=== PATIENT | female | born 1945 | race Caucasian/White ===

== ENCOUNTER → 2018-08-27 12:38 | Outpatient (CLI) | payer MEDICARE, SELFPAY ==
--- NOTE | 2018-08-27 12:41 | BI_ITS ---
MAMMOGRAPHY - BILATERAL SCREENING REASON FOR EXAM: Female, 73 years old. Routine annual screening examination. PERTINENT HISTORY: Non-contributory. TECHNIQUE: Digital bilateral breast sasha (3D mammographic acquisition) in the CC and MLO projections. 2-D mediolateral oblique (MLO) and craniocaudad (CC) views of both breasts were obtained. CAD: Full Field Digital Mammography with Computer Added Detection was performed. COMPARISON: Comparison is made with prior study dated August 26, 2017 and August 19, 2016. FINDINGS: Breast Composition: The breasts are heterogeneously dense, which may obscure small masses. There are no dominant masses or suspicious calcifications. No other significant abnormalities are identified. There has been no significant change since the prior study. BI/SCREENING MAMM (CAD), BILAT IMPRESSION: Stable bilateral screening mammogram. Yearly follow-up mammogram recommended. (A) ASSESSMENT CATEGORY: BIRADS Category 1: Negative. A letter regarding these results will be sent to the patient by the facility within 30 days. Approximately 10% of breast cancers are not detected by mammography. A normal mammogram should not delay biopsy of a clinically suspicious abnormality. [id number] Electronically Signed: Darryn Ibrahim MD at 13:44 EDT Tel [phone], Service support ,
== END ==
PROVIDERS: Family Provider Internal Medicine; PCP Internal Medicine; Referring Provider Obstetrics & Gynecology; Visit Provider Obstetrics & Gynecology
DX: Z12.31 Encounter for screening mammogram for malignant neoplasm of breast (principal)
CPT/HCPCS: 77063; 77067

== ENCOUNTER → 2019-09-07 | Outpatient (CLI) | payer MEDICARE, SELFPAY ==
--- NOTE | 2019-09-07 09:02 | BI_ITS ---
MAMMOGRAPHY - BILATERAL SCREENING REASON FOR EXAM: Female, 74 years old. Routine annual screening examination. PERTINENT HISTORY: Non-contributory. TECHNIQUE: Digital bilateral breast donna (3D mammographic acquisition) in the CC and MLO projections. 2-D mediolateral oblique (MLO) and craniocaudad (CC) views of both breasts were obtained. CAD: Full Field Digital Mammography with Computer Added Detection was performed. COMPARISON: Comparison is made with prior examination dated August 27, 2018 and August 26, 2017. FINDINGS: Breast Composition: There are scattered areas of fibroglandular density. There are no dominant masses or suspicious calcifications. No other significant abnormalities are identified. There has been no significant change since the prior study. BI/SCREEN MAMM (CAD) W/DONNA BILAT IMPRESSION: Stable bilateral screening mammogram. Yearly follow-up mammogram recommended. (A) ASSESSMENT CATEGORY: BIRADS Category 1: Negative. A letter regarding these results will be sent to the patient by the facility within 30 days. Approximately 10% of breast cancers are not detected by mammography. A normal mammogram should not delay biopsy of a clinically suspicious abnormality. [id number] Electronically Signed: Darryn Ibrahim, at 11:01 EST , Service support ,
--- NOTE | 2019-09-07 09:17 | BD_ITS ---
STUDY: DUAL ENERGY X-RAY ABSORPTIOMETRY / DXA REASON FOR EXAM: Female, 74 years old. The patient is postmenopausal. History of thyroid cancer. TECHNIQUE: Bone Mineral Density (BMD) measurements of lumbar spine and bilateral hips were obtained. COMPARISON: Comparison is made with prior examination dated September 04, 2016. FINDINGS: Lumbar Spine (L1-L4): g/cm2 (0.900) / T-score (-2.5) / Z-score (-0.7) Findings are suggestive of osteoporosis with a high fracture risk. Left Femur Total: g/cm2 (0.800) / T-score (-1.7) / Z-score (0.2) Left Femoral Neck: g/cm2 (0.783) / T-score (-1.8) / Z-score (0.1) Right Femur Total: g/cm2 (0.774) / T-score (-1.9) / Z-score (0.0) Right Femoral Neck: g/cm2 (0.753) / T-score (-2.1) / Z-score (-0.1) The T-Scores on the most recent prior examination were: Lumbar Spine (L1-L4): There has been worsening of bone density since the previous examination. Left Femur Total: which represents a worsening of 5.7%. Right Femur Total: which represents an improvement of 1%. BD/Dexa Bone Density Study IMPRESSION: The patient is considered osteoporotic as outlined below according to World Valerio Organization (WHO) criteria with a high fracture risk. There has been worsening of bone density since the previous examination. Reference Information: The T-score is the number of standard deviations above or below the standard which is normal for young adults at their peak bone mineral density. The World Health Organization (WHO) interprets the T-scores as follows: Above -1 Normal bone density Between -1 and -2.5 Osteopenia Equal to / or below -2.5 Osteoporosis As a practical clinical guideline, osteopenia may be graded as follows: Mild -1 through -1.5 Moderate -1.6 through -2.0 Severe -2.1 through -2.4 The Z-score is the number of standard deviations above or below age-matched controls. A Z-score of less than -1.5 would be considered abnormal. References: 1. NIH Osteoporosis and Related Bone Diseases http://www.osteo.org 2. International Society for Clinical Densitometry http://www.iscd.org 3. National Osteoporosis Foundation http://www.nof.org Electronically Signed: Darryn Ibrahim, at 10:17 EST , Service support ,
== END | disposition home or self-care (01) ==
LOC: OPBD 08:59
PROVIDERS: Family Provider Internal Medicine; PCP Internal Medicine; Referring Provider Obstetrics & Gynecology; Visit Provider Obstetrics & Gynecology
DX: M85.89 Other specified disorders of bone density and structure, multiple sites (principal); Z12.31 Encounter for screening mammogram for malignant neoplasm of breast
CPT/HCPCS: 77063; 77067; 77080

== ENCOUNTER → 2019-09-20 09:05 | Outpatient (CLI) | payer MEDICARE, SELFPAY ==
[2019-09-20 10:45] LABS: Calcium,Total 9.4 mg/dL (8.5-10.1)
[2019-09-20 10:56] LABS: Vitamin D,25 Hydroxy 62.9 ng/mL (29.95-100.01)
== END ==
PROVIDERS: Visit Provider Obstetrics & Gynecology
DX: M81.0 Age-related osteoporosis without current pathological fracture (principal)
CPT/HCPCS: 36415; 82306; 82310

== ENCOUNTER 2019-11-27 07:06 | Emergency (ER) | payer MEDICARE, SELFPAY ==
[2019-11-27 07:09] VITALS: BP 154/77; PULSE 81; RESP 17; TEMP 37.1; O2SAT 98; BMI 23.6
--- NOTE | 2019-11-27 07:46 | ED.DCSUM_ITS ---
History of Present Illness Chief Complaint: Wound Check Detail of Chief Complaint: redness around surgical incision Informant: Patient, Significant Other Onset: Days - 3 Context: Gradual Onset - post-surgery Timing: Continuous Quality of Pain: - - sore Location: left knee Current Severity: Mild Maximum Severity: Mild Associated Symptoms: Negative for: Parasthesia, Weakness, Loss of Funtion Narrative: Patient had robotic knee surgery 5 days ago. Postoperatively she states she has been doing very well, walking and bending her knee without too much difficulty. She noticed redness spread outside of her postoperative dressing 3 days ago. It was really not bothering her more. Yesterday she was at physical therapy, they remove the postoperative dressing and had some concern about the redness that was emanating from the wound. They alber a line around it and told her to come to the emergency department if the redness went outside the line. This morning in her medial thigh and her lateral thigh, the redness has spread a little more proximally. It has not spread distally. She has no increased pain. There is no discharge from the wound. She denies any fevers or systemic symptoms, no shortness of breath or chest pain. There is no increased swelling distally. She is not anticoagulated. - Past Medical History (1) Osteoarthritis Status: Chronic Past Medical History - Allergies and Home Meds Allergies/Adverse Reactions: Allergies No Known Allergies Allergy (Verified 11/27/19 07:09) Primary Care Physician: Elise Martinez MD [Primary Care Provider] - Surgical History: total knee arthroplasty Lives: Spouse/ Significant Other Smoking Status: Never smoker Review of Systems General: Denies: Chills, Fever, Sweats Eyes: Denies: Visual changes - bilaterally, Diplopia ENT: Denies: Rhinorrhea, Sore throat Cardiovascular: Denies: Chest pain, Palpitations Respiratory: Denies: Dyspnea, Cough, Dyspnea on exertion Gastrointestinal: Denies: Abdominal pain, Nausea, Vomiting, Diarrhea, Melena, Hematochezia Genitourinary: Denies: Dysuria, Hematuria, Frequency Musculoskeletal: Reports: Swelling - Postoperative left lower extremity, Extremity Pain - Per patient, relatively mild postoperative pain left knee/extremity. Denies: Back pain Skin: Reports: Rash, Wounds - Left knee surgical Neurological: Denies: Headache, Weakness, Numbness Physical Exam Vital Signs/Narrative: Vital Signs Temp Pulse Resp BP Pulse Ox 11/27/19 07:09 98.7 F 81 17 154/77 H 98 Inital Vital Signs reviewed: Yes - Extremity Exam Left Femur: - - No palpable cords Left Knee: - - Mild diffuse swelling around the left knee, some of which progresses distally along with bruising. Negative for: Limited ROM Left Tib Fib: Edema - Mild, - - No palpable cords or calf tenderness General: Well nourished, Well developed Respiratory: No distress Skin: Rash - Erythema surrounding left anterior knee surgical incision, darrius are intact, it is somewhat patchy in distribution, it progresses up the left thigh medially well beyond the line that is drawn, and laterally only about 1 cm beyond where the line is drawn. Distally it does not spread beyond the line, nor medially or laterally at the knee proper. She has full range of motion. The erythema is not tender. There is no discharge from the surgical wound which is intact. There is no streaky lymphangitis. Neurological: Alert, Oriented x3, Cranial nerves II-XII grossly intact, Normal Strength, Normal Sensation Psychological: Normal affect, Normal Mood Diagnostic/Tx/Re-eval Laboratory Tests 11/27/19 Range/Units 07:55 WBC 6.5 (4.4-11.0) K/mm3 RBC 3.95 L (4.2-5.4) M/mm3 Hgb 12.1 (12.0-15.0) g/dL Hct 36.3 L (37-47) % MCV 91.9 (81-99) fL MCH 30.6 (27.0-32.0) pg MCHC 33.3 (32-36) g/dL RDW Std Deviation 42.5 (35.1-43.9) fl RDW Coeff of Lucas 12.5 (11.6-14.6) % Plt Count 261 (150-450) K/mm3 MPV 10.6 (6.2-12.0) fl Immature Gran % (Auto) 0.300 (0.0-0.9) % Neut % (Auto) 75.8 H (47-70) % Lymph % (Auto) 12.5 L (19-41) % Randall % (Auto) 10.2 H (0-10) % Eos % (Auto) 0.9 (0-5) % Baso % (Auto) 0.3 (0-1) % Absolute Neuts (auto) 4.9 (2.0-7.7) X10^3/uL Absolute Lymphs (auto) 0.81 L (0.83-4.51) X10^3/uL Nucleated RBC % 0 (0-5) % - Medical Decision Making White blood count was obtained, it is very normal and there is no leftward shift. See above. I discussed with Dr. Romero who was on-call for the weekend for Dr. Chandra. He states based on the description along with no tenderness, and redness that is spread outside the lines, he would recommend not placing the patient on antibiotics at this time, as this redness unlikely represents acute infection, and following up with Dr. Chandra, icing aggressively and taking ibuprofen 600 mg 3 times daily until that. Discussed with the patient she is comfortable with this plan. ED Disposition - Plan for ED Patient: Disposition: Home or Assisted Living Diagnosis: Encounter for postoperative wound check Instructions: POST OP WOUND CHECK, Pain Referrals: Gio Chandra MD [STAFF PHYSICIAN] - 11/29/19 (call friday AM for appt) Additional Instructions: When you are resting, ice your knee aggressively. Take ibuprofen 600 mg 2-[address] Chandra in follow-up on Friday. If you develop a fever before then, return to the ER.
[2019-11-27 08:07] LABS: Absolute Lymphocyte Count 0.81 X10^3/uL (0.83-4.51); Absolute Neutrophil Count 4.9 X10^3/uL (2.0-7.7); Basophil# 0.02 X10^3/uL; Basophil% 0.3 % (0-1); Eosinophil# 0.06 X10^3/uL; Eosinophils% 0.9 % (0-5); Hematocrit 36.3 % (37-47); Hemoglobin 12.1 g/dL (12.0-15.0); Lymphocyte # 0.81 X10^3/ul (4.0); Lymphocyte % 12.5 % (19-41); Mean Corp Hgb Conc 33.3 g/dL (32-36); Mean Corpuscular Hgb 30.6 pg (27.0-32.0); Mean Corpuscular Volume 91.9 fL (81-99); Mean Platelet Vol. 10.6 fl (6.2-12.0); Monocyte# 0.66 X10^3/uL; Monocyte% 10.2 % (0-10); NRBC Flagged by Analyzer 0 % (0-5); Neutrophil # 4.89 X10^3/uL (2.7-7.7); Neutrophil % 75.8 % (47-70); Platelet Count 261 K/mm3 (150-450); RBC Distribution Width CV 12.5 % (11.6-14.6); RBC Distribution Width SD 42.5 fl (35.1-43.9); Red Blood Count 3.95 M/mm3 (4.2-5.4); White Blood Count 6.5 K/mm3 (4.4-11.0)
== END 2019-11-27 08:44 | disposition home or self-care (01) ==
PROVIDERS: Emergency Provider Emergency Medicine; PCP Internal Medicine; Referring Provider Internal Medicine
DX: L53.9 Erythematous condition, unspecified (principal); Z98.890 Other specified postprocedural states; M19.90 Unspecified osteoarthritis, unspecified site; Z96.652 Presence of left artificial knee joint
CPT/HCPCS: 85025; 99283; A4216

== ENCOUNTER → 2020-04-18 | Outpatient (CLI) | payer MEDICARE, SELFPAY ==
--- NOTE | 2020-04-18 09:43 | MRI_ITS ---
STUDY: MRI LUMBAR SPINE WITHOUT CONTRAST REASON FOR EXAM: Female, 75 years old. R thigh pain intermittently x 3 yrs, no relief from PT,lbp TECHNIQUE: Standardized fat and water weighted pulse sequences were obtained in the sagittal and axial planes. COMPARISON: None FINDINGS: T12-L1: Normal endplates. Normal disc height, hydration and morphology. Normal bilateral facet joints. Normal central canal and bilateral lateral recesses. Normal bilateral intervertebral neural foramina. Normal lumbar lordosis. There is no substantial scoliosis. Normal conus medullaris that terminates at the T12/L1. L1-2: Normal endplates. Normal disc height, hydration and morphology. Normal bilateral facet joints. Normal central canal and bilateral lateral recesses. Normal bilateral intervertebral neural foramina. L2-3: Normal endplates. Normal disc height, hydration and morphology. Normal bilateral facet joints. Normal central canal and bilateral lateral recesses. Normal bilateral intervertebral neural foramina. L3-4: Moderate bilateral facet hypertrophy and severe ligament flavum hypertrophy. Mild broad disc protrusion produces mild spinal stenosis with mild bilateral lateral recess stenosis and mild bilateral neural foraminal stenosis. L4-5: Severe bilateral facet hypertrophy and mild ligament flavum hypertrophy. 5 mm of anterolisthesis of L4 on L5 with a mild broad disc protrusion produces moderate spinal stenosis and moderate bilateral neural foraminal stenosis with abutment of the L4 nerve roots bilaterally. L5-S1: Ankylosis of the disc space with mild spinal stenosis and mild bilateral neural foraminal stenosis. Normal visualized sacral ala. Normal visualized paraspinous soft tissue structures. MRI/Spine Lumbar (Routine) IMPRESSION: Multilevel degenerative changes, as described above. Electronically Signed: Tahir Sargent MD at 15:02 EDT Tel , Service support ,
== END | disposition home or self-care (01) ==
PROVIDERS: PCP Internal Medicine; Referring Provider Physician Assistant Surgical; Visit Provider Physician Assistant Surgical
DX: M54.16 Radiculopathy, lumbar region (principal); M43.16 Spondylolisthesis, lumbar region
CPT/HCPCS: 72148

== ENCOUNTER → 2020-06-08 | Outpatient (CLI) | payer MEDICARE, SELFPAY ==
[2020-06-08 15:30] VITALS: BMI 23.6
[2020-06-08 17:51] LABS: ALB/GLOB Ratio 1.1 RATIO (0.9-2.4); AST(SGOT) 11 U/L (15-37); Alanine Aminotransfer ALT/SGPT 15 U/L (13-56); Albumin, Serum 3.5 g/dL (3.2-5.0); Alkaline Phosphatase 69 U/L (45-117); Anion Gap 7 (5-15); BUN 31 mg/dL (7-18); BUN/Creat Ratio 40.9 RATIO (10-20); Calcium,Total 8.8 mg/dL (8.5-10.1); Chloride 103 mmol/L (98-107); Creatinine, Serum 0.76 mg/dL (0.55-1.02); EST Glomerular Filtration Rate 79 mL/min (>60); Est Glom Filt Rate - Afr Amer 95 mL/min (>60); Globulin 3.1 g/dL (2.2-4.2); Glucose 92 mg/dL (74-106); Potassium 3.9 mmol/L (3.5-5.1); Protein, Total 6.6 g/dL (6.4-8.2); Sodium Level 138 mmol/L (136-145); T4 Free Direct 1.44 ng/dL (0.76-1.46); Thyroid Stim Hormone (TSH) 0.52 uIU/mL (0.358-3.74)
[2020-06-08 19:04] LABS: Vitamin D,25 Hydroxy 70.6 ng/mL
[2020-06-12 15:27] LABS: Anti-Thyroglobulin AB < 1.0 IU/mL (0.0-0.9); Thyroglobulin, Serum Qt. < 0.1 ng/mL (1.5-38.5)
== END | disposition home or self-care (01) ==
LOC: BIMLAB 16:17
PROVIDERS: PCP Internal Medicine; Referring Provider Internal Medicine Endocrinology, Diabetes & Metabolism; Visit Provider Internal Medicine Endocrinology, Diabetes & Metabolism
DX: C73 Malignant neoplasm of thyroid gland (principal); E55.9 Vitamin D deficiency, unspecified; E89.0 Postprocedural hypothyroidism; M81.0 Age-related osteoporosis without current pathological fracture
CPT/HCPCS: 36415; 80053; 82306; 84432; 84439; 84443; 86800

== ENCOUNTER → 2020-06-27 | Outpatient (CLI) | payer MEDICARE, SELFPAY ==
[2020-06-08 15:30] VITALS: BMI 23.6
[2020-06-27 10:21] LABS: Absolute Lymphocyte Count 1.41 X10^3/uL (0.83-4.51); Absolute Neutrophil Count 2.2 X10^3/uL (2.0-7.7); Basophil# 0.02 X10^3/uL; Basophil% 0.5 % (0-1); Eosinophils% 2.4 % (0-5); Hematocrit 40.5 % (37-47); Hemoglobin 13.9 g/dL (12.0-15.0); Lymphocyte # 1.41 X10^3/ul (4.0); Lymphocyte % 33.3 % (19-41); Mean Corp Hgb Conc 34.3 g/dL (32-36); Mean Corpuscular Hgb 32.4 pg (27.0-32.0); Mean Corpuscular Volume 94.4 fL (81-99); Mean Platelet Vol. 11.3 fl (6.2-12.0); Monocyte# 0.47 X10^3/uL; Monocyte% 11.1 % (0-10); NRBC Flagged by Analyzer 0 % (0-5); Neutrophil # 2.22 X10^3/uL (2.7-7.7); Neutrophil % 52.5 % (47-70); Platelet Count 285 K/mm3 (150-450); RBC Distribution Width CV 13.2 % (11.6-14.6); RBC Distribution Width SD 44.7 fl (35.1-43.9); Red Blood Count 4.29 M/mm3 (4.2-5.4); White Blood Count 4.2 K/mm3 (4.4-11.0)
[2020-06-27 10:23] LABS: Erythrocyte Sedimentation Rate < 1 mm/hr (0-30)
[2020-06-27 10:49] LABS: CRP < 2.90 mg/L (0.0-3.0)
== END | disposition home or self-care (01) ==
LOC: MTLAB 07:28
PROVIDERS: PCP Internal Medicine; Referring Provider Physician Assistant Surgical; Visit Provider Physician Assistant Surgical
DX: Z96.652 Presence of left artificial knee joint (principal)
CPT/HCPCS: 36415; 85025; 85652; 86140

== ENCOUNTER → 2020-07-07 | Outpatient (CLI) | payer MEDICARE, SELFPAY ==
[2020-06-08 15:30] VITALS: BMI 23.6
[2020-07-07] MEDS: DENOSUMAB 60 MG/ML SQ (12:53)
[2020-07-07 12:54] VITALS: BP 134/70; PULSE 71; RESP 16; TEMP 36.6; O2SAT 100; BMI 23.4
[2020-07-07 13:01] VITALS: BP 134/70; PULSE 71; RESP 16; TEMP 36.6; O2SAT 100
== END | disposition home or self-care (01) ==
LOC: MEDOUTP 12:45
PROVIDERS: PCP Internal Medicine; Referring Provider Internal Medicine Endocrinology, Diabetes & Metabolism; Visit Provider Internal Medicine Endocrinology, Diabetes & Metabolism
DX: M81.0 Age-related osteoporosis without current pathological fracture (principal)
CPT/HCPCS: 96372; J0897

== ENCOUNTER → 2020-09-11 10:06 | Outpatient (CLI) | payer MEDICARE, SELFPAY ==
[2020-06-08 15:30] VITALS: BMI 23.6
[2020-07-07 12:54] VITALS: BMI 23.4
--- NOTE | 2020-09-11 10:09 | BI_ITS ---
MAMMOGRAPHY - BILATERAL SCREENING REASON FOR EXAM: Female, 75 years old. Routine annual screening examination. PERTINENT HISTORY: Non-contributory. TECHNIQUE: Digital bilateral breast donna (3D mammographic acquisition) in the CC and MLO projections. 2-D mediolateral oblique (MLO) and craniocaudad (CC) views of both breasts were obtained. CAD: Full Field Digital Mammography with Computer Added Detection was performed. COMPARISON: Comparison is made with prior study dated 09/07/2019 and 08/27/2018. FINDINGS: Breast Composition: The breasts are heterogeneously dense, which may obscure small masses. There are no dominant masses or suspicious calcifications. No other significant abnormalities are identified. There has been no significant change since the prior study. BI/SCREEN MAMM (CAD) W/DONNA BILAT IMPRESSION: Stable bilateral screening mammogram. Yearly follow-up mammogram recommended. (A) ASSESSMENT CATEGORY: BIRADS Category 1: Negative. A letter regarding these results will be sent to the patient by the facility within 30 days. Approximately 10% of breast cancers are not detected by mammography. A normal mammogram should not delay biopsy of a clinically suspicious abnormality. [id number] Electronically Signed: Darryn Ibrahim, at 11:07 EST , Service support ,
== END ==
PROVIDERS: PCP Internal Medicine; Referring Provider Obstetrics & Gynecology; Visit Provider Obstetrics & Gynecology
DX: Z12.31 Encounter for screening mammogram for malignant neoplasm of breast (principal)
CPT/HCPCS: 77063; 77067

== ENCOUNTER → 2020-11-15 07:36 | Outpatient (CLI) | payer MEDICARE, SELFPAY ==
[2020-07-07 12:54] VITALS: BMI 23.4
--- NOTE | 2020-11-15 07:43 | CT_ITS ---
STUDY: CT BRAIN WITH AND WITHOUT CONTRAST REASON FOR EXAM: Female, 75 years old. HEADACHES AND PRESSURE X 1 TO 2 MONTHS RADIATION DOSAGE (If Supplied By Facility): CTDIvol = ( 44.99 ) mGy, DLP = ( 1547.23 ) mGycm TECHNIQUE: Transaxial CT imaging of the brain was performed pre and post contrast administration. The examination was performed with intravenous administration of IV 50mL Isovue-300. Individualized dose optimization techniques were used for this CT. COMPARISON: None. FINDINGS: Normal soft tissue structures. Normal calvarium. There is mild cerebral atrophy with widening of the extra-axial spaces and ventricular dilatation. Normal white matter tracts of the cerebral hemispheres. Normal basal ganglia and thalami. Normal brainstem. Normal cerebellum. There is no intracranial hemorrhage. There are no findings of an acute ischemic infarction. Normal visualized paranasal sinuses. CT/Brain/Head W/WO Contrast IMPRESSION: Chronic involutional changes of the brain. Electronically Signed: Darryn Ibrahim MD at 9:09 EST , Service support ,
[2020-11-15 08:01] LABS: CREATININE FINGERSTICK 1.2 mg/dL (0.55-1.02)
== END ==
PROVIDERS: PCP Internal Medicine; Referring Provider Otolaryngology; Visit Provider Otolaryngology
DX: R51.9 Headache, unspecified (principal); S09.90XA Unspecified injury of head, initial encounter
CPT/HCPCS: 70470; Q9967

== ENCOUNTER → 2021-01-12 10:46 | Outpatient (CLI) | payer MEDICARE, SELFPAY ==
[2020-06-08 15:30] VITALS: BMI 23.6
[2020-07-07 12:54] VITALS: BMI 23.4
[2021-01-12 10:52] VITALS: BP 129/80; PULSE 72; RESP 16; TEMP 36.8; O2SAT 100; BMI 22.8
[2021-01-12] MEDS: DENOSUMAB 60 MG/ML SC (10:57)
== END ==
PROVIDERS: PCP Internal Medicine; Referring Provider Internal Medicine Endocrinology, Diabetes & Metabolism; Visit Provider Internal Medicine Endocrinology, Diabetes & Metabolism
DX: M81.0 Age-related osteoporosis without current pathological fracture (principal)
CPT/HCPCS: 96372; J0897

== ENCOUNTER → 2021-07-13 12:49 | Outpatient (CLI) | payer MEDICARE, SELFPAY ==
[2020-07-07 12:54] VITALS: BMI 23.4
[2021-07-13 12:55] VITALS: BP 148/79; PULSE 95; RESP 16; TEMP 36.4; O2SAT 99
[2021-07-13] MEDS: DENOSUMAB 60 MG/ML SC (12:58)
== END ==
PROVIDERS: PCP Internal Medicine; Referring Provider Internal Medicine Endocrinology, Diabetes & Metabolism; Visit Provider Internal Medicine Endocrinology, Diabetes & Metabolism
DX: M81.0 Age-related osteoporosis without current pathological fracture (principal)
CPT/HCPCS: 96372; J0897

== ENCOUNTER → 2021-09-14 09:51 | Outpatient (CLI) | payer MEDICARE, SELFPAY ==
--- NOTE | 2021-09-14 09:53 | BI_ITS ---
MAMMOGRAPHY - BILATERAL SCREENING REASON FOR EXAM: Female, 76 years old. Routine annual screening examination. PERTINENT HISTORY: Non-contributory. TECHNIQUE: Digital bilateral breast donna (3D mammographic acquisition) in the CC and MLO projections. 2-D mediolateral oblique (MLO) and craniocaudad (CC) views of both breasts were obtained. CAD: Full Field Digital Mammography with Computer Added Detection was performed. COMPARISON: Comparison is made with prior study dated 09/11/2020 and 09/07/2019. FINDINGS: Breast Composition: The breasts are heterogeneously dense, which may obscure small masses. There are no dominant masses or suspicious calcifications. Stable small benign-appearing bilateral axillary lymph nodes. No other significant abnormalities are identified. There has been no significant change since the prior study. BI/SCRN MAMM (CAD)W/DONNA BILAT IMPRESSION: Stable bilateral screening mammogram. Yearly follow-up mammogram recommended. (A) ASSESSMENT CATEGORY: BIRADS Category 2: Benign. A letter regarding these results will be sent to the patient by the facility within 30 days. Approximately 10% of breast cancers are not detected by mammography. A normal mammogram should not delay biopsy of a clinically suspicious abnormality. [id number] Electronically Signed: Darryn Ibrahim MD at 11:06 EST , Service support ,
== END ==
PROVIDERS: PCP Internal Medicine; Referring Provider Obstetrics & Gynecology; Visit Provider Obstetrics & Gynecology
DX: Z12.31 Encounter for screening mammogram for malignant neoplasm of breast (principal)
CPT/HCPCS: 77063; 77067

== ENCOUNTER 2022-01-18 12:46 | Outpatient (CLI) | payer MEDICARE, SELFPAY ==
[2022-01-18 12:45] VITALS: BP 145/81; PULSE 88; RESP 16; TEMP 36.6; O2SAT 100
[2022-01-18] MEDS: DENOSUMAB 60 MG/ML SC (12:58)
== END 2022-01-18 23:59 | disposition home or self-care (01) ==
LOC: MEDOUTP 12:47
PROVIDERS: PCP Internal Medicine; Referring Provider Internal Medicine Endocrinology, Diabetes & Metabolism; Visit Provider Internal Medicine Endocrinology, Diabetes & Metabolism
DX: M81.0 Age-related osteoporosis without current pathological fracture (principal)
CPT/HCPCS: 96372; J0897

== ENCOUNTER → 2022-06-13 | Outpatient (CLI) | payer MEDICARE, SELFPAY ==
--- NOTE | 2022-06-13 12:58 | BD_ITS ---
STUDY: DUAL ENERGY X-RAY ABSORPTIOMETRY / DXA REASON FOR EXAM: Female, 77 years old. Assess treatment TECHNIQUE: Bone Mineral Density (BMD) measurements of lumbar spine and bilateral hips were obtained. COMPARISON: Comparison is made with prior study dated 09/07/2019. FINDINGS: Lumbar Spine (L1-L4): g/cm2 (0.809) / T-score (-1.9) / Z-score (0.7) Findings are suggestive of osteopenia with a moderate fracture risk. Left Femur Total: g/cm2 (0.765) / T-score (-1.4) / Z-score (0.6) Left Femoral Neck: g/cm2 (0.658) / T-score (-1.7) / Z-score (0.5) Right Femur Total: g/cm2 (0.746) / T-score (-1.6) / Z-score (0.4) Right Femoral Neck: g/cm2 (0.609) / T-score (-2.2) / Z-score (0.1) The T-Scores on the most recent prior examination were: Lumbar Spine (L1-L4): There has been improvement of bone density since the previous examination. Left Femur Total: which represents an improvement of 3.5%. Right Femur Total: which represents an improvement of 4.4%. BD/Dexa Bone Density Study IMPRESSION: The patient is considered osteopenic as outlined below according to World Valerio Organization (WHO) criteria with a moderate fracture risk. There has been improvement of bone density since the previous examination. Reference Information: The T-score is the number of standard deviations above or below the standard which is normal for young adults at their peak bone mineral density. The World Health Organization (WHO) interprets the T-scores as follows: Above -1 Normal bone density Between -1 and -2.5 Osteopenia Equal to / or below -2.5 Osteoporosis As a practical clinical guideline, osteopenia may be graded as follows: Mild -1 through -1.5 Moderate -1.6 through -2.0 Severe -2.1 through -2.4 The Z-score is the number of standard deviations above or below age-matched controls. A Z-score of less than -1.5 would be considered abnormal. References: 1. NIH Osteoporosis and Related Bone Diseases www osteo.org 2. International Society for Clinical Densitometry www iscd.org 3. National Osteoporosis Foundation www nof.org Electronically Signed: Darryn Ibrahim MD at 15:27 EDT ,
== END | disposition home or self-care (01) ==
PROVIDERS: PCP Internal Medicine; Referring Provider Internal Medicine Endocrinology, Diabetes & Metabolism; Visit Provider Internal Medicine Endocrinology, Diabetes & Metabolism
DX: M81.0 Age-related osteoporosis without current pathological fracture (principal); M85.80 Other specified disorders of bone density and structure, unspecified site
CPT/HCPCS: 77080

== ENCOUNTER → 2022-06-14 | Outpatient (CLI) | payer MEDICARE, SELFPAY ==
[2022-06-14 10:46] LABS: Vitamin D,25 Hydroxy 51.6 ng/mL
[2022-06-14 10:58] LABS: AST(SGOT) 26 U/L (15-37); Alanine Aminotransfer ALT/SGPT 21 U/L (13-56); Albumin, Serum 3.3 g/dL (3.2-5.0); Alkaline Phosphatase 54 U/L (45-117); Anion Gap 5 (5-15); BUN 24 mg/dL (7-18); Calcium,Total 8.6 mg/dL (8.5-10.1); Chloride 104 mmol/L (98-107); EST Glomerular Filtration Rate 74 mL/min (>60); Est Glom Filt Rate - Afr Amer 89 mL/min (>60); Globulin 3.3 g/dL (2.2-4.2); Glucose 98 mg/dL (74-106); Potassium 4.2 mmol/L (3.5-5.1); Protein, Total 6.6 g/dL (6.4-8.2); Sodium Level 137 mmol/L (136-145); T4 Free Direct 1.35 ng/dL (0.76-1.46); Thyroid Stim Hormone (TSH) 0.65 uIU/mL (0.358-3.74)
[2022-06-18 07:54] LABS: Anti-Thyroglobulin AB < 1.0 IU/mL (0.0-0.9); Thyroglobulin, Serum Qt. < 0.1 ng/mL (1.5-38.5)
== END | disposition home or self-care (01) ==
PROVIDERS: PCP Internal Medicine; Referring Provider Internal Medicine Endocrinology, Diabetes & Metabolism; Visit Provider Internal Medicine Endocrinology, Diabetes & Metabolism
DX: C73 Malignant neoplasm of thyroid gland (principal); E89.0 Postprocedural hypothyroidism; M81.0 Age-related osteoporosis without current pathological fracture; E55.9 Vitamin D deficiency, unspecified
CPT/HCPCS: 36415; 80053; 82306; 84432; 84439; 84443; 86800

== ENCOUNTER → 2022-07-17 | Outpatient (CLI) | payer MEDICARE, SELFPAY ==
--- NOTE | 2022-07-17 11:07 | MRI_ITS ---
STUDY: MRI LUMBAR SPINE WITHOUT CONTRAST REASON FOR EXAM: Female, 77 years old. SPONDYLOLISTHESIS L3/4,L4/5 TECHNIQUE: Standardized fat and water weighted pulse sequences were obtained in the sagittal and axial planes. COMPARISON: 04/18/2020 FINDINGS: T12-L1: Normal endplates. Normal disc height, desiccation and normal morphology. Normal bilateral facet joints. Normal central canal and bilateral lateral recesses. Normal bilateral intervertebral neural foramina. Normal lumbar lordosis. There is no substantial scoliosis. Normal conus medullaris that terminates at T12-L1 L1-2: Normal endplates. Normal disc height, desiccation and minimal annular bulge.. Normal bilateral facet joints. Normal central canal and bilateral lateral recesses. Normal bilateral intervertebral neural foramina. L2-3: Normal endplates. Normal disc height, desiccation and minimal annular bulge.. Normal bilateral facet joints. Normal central canal and bilateral lateral recesses. Normal bilateral intervertebral neural foramina. L3-4: . Normal disc height with desiccation of disc and mild bulging disc osteophyte complex. Facet arthropathy and thickening of ligamenta flava. Moderate central canal and bilateral lateral recess stenosis. Severe bilateral neuroforaminal stenosis exaggerated by shortened pedicles L4-5: Grade 1 spondylolisthesis. Narrowed disc space with degenerative endplate changes.. Desiccation of disc and mild bulging disc osteophyte complex. Facet arthropathy and thickening of ligamenta flava. Mild narrowing of the central canal and moderate bilateral lateral recess stenosis. Severe neuroforaminal stenosis exaggerated by shortened pedicles. L5-S1: Grade 1 anterolisthesis.. Severely narrowed disc space with mild bulging disc osteophyte complex. Facet arthropathy.. Normal central canal and bilateral lateral recesses. Severe bilateral neuroforaminal stenosis exaggerated by shortened pedicles . Normal visualized sacral ala. Normal visualized paraspinous soft tissue structures. MRI/Spine Lumbar (Routine) IMPRESSION: No evidence for acute fracture or other significant bony pathology.. Moderate spondylosis and multilevel spondylolisthesis. Spinal stenosis at L4-5, L5-S1 and most severe at L3-4 secondary to disc disease and facet arthropathy exaggerated by shortened pedicles. Findings as above Electronically Signed: Monster Reynolds MD at 19:27 EDT ,
== END | disposition home or self-care (01) ==
LOC: MRI 10:41
PROVIDERS: PCP Internal Medicine; Referring Provider Nurse Practitioner Acute Care; Visit Provider Nurse Practitioner Acute Care
DX: M43.16 Spondylolisthesis, lumbar region (principal)
CPT/HCPCS: 72148

== ENCOUNTER → 2022-07-26 | Outpatient (CLI) | payer MEDICARE, SELFPAY ==
[2022-07-26] MEDS: DENOSUMAB 60 MG/ML SC (13:01)
[2022-07-26 13:05] VITALS: BP 127/79; PULSE 80; RESP 16; TEMP 36.1; O2SAT 98
== END | disposition home or self-care (01) ==
LOC: MEDOUTP 12:51
PROVIDERS: PCP Internal Medicine; Referring Provider Internal Medicine Endocrinology, Diabetes & Metabolism; Visit Provider Internal Medicine Endocrinology, Diabetes & Metabolism
DX: M81.0 Age-related osteoporosis without current pathological fracture (principal)
CPT/HCPCS: 96372; J0897

== ENCOUNTER → 2022-09-23 | Outpatient (CLI) | payer MEDICARE, SELFPAY ==
--- NOTE | 2022-09-23 14:00 | BI_ITS ---
MAMMOGRAPHY - BILATERAL SCREENING REASON FOR EXAM: Female, 77 years old. Routine annual screening examination. PERTINENT HISTORY: Non-contributory. TECHNIQUE: Digital bilateral breast donna (3D mammographic acquisition) in the CC and MLO projections. 2-D mediolateral oblique (MLO) and craniocaudad (CC) views of both breasts were obtained. CAD: Full Field Digital Mammography with Computer Added Detection was performed. COMPARISON: Comparison is made with prior study dated 09/14/2021 and 09/11/2020. FINDINGS: Breast Composition: The breasts are heterogeneously dense, which may obscure small masses. There are no dominant masses or suspicious calcifications. Stable small benign-appearing bilateral axillary lymph node. No other significant abnormalities are identified. There has been no significant change since the prior study. BI/SCRN MAMM (CAD)W/DONNA BILAT IMPRESSION: Stable bilateral screening mammogram. Yearly follow-up mammogram recommended. (A) ASSESSMENT CATEGORY: BIRADS Category 2: Benign. A letter regarding these results will be sent to the patient by the facility within 30 days. Approximately 10% of breast cancers are not detected by mammography. A normal mammogram should not delay biopsy of a clinically suspicious abnormality. [id number] Electronically Signed: Darryn Ibrahim MD at 14:39 EST ,
== END | disposition home or self-care (01) ==
LOC: OPBI 13:59
PROVIDERS: PCP Internal Medicine; Visit Provider Obstetrics & Gynecology
DX: Z12.31 Encounter for screening mammogram for malignant neoplasm of breast (principal)
CPT/HCPCS: 77063; 77067

== ENCOUNTER → 2023-01-24 | Outpatient (CLI) | payer MEDICARE, SELFPAY ==
[2023-01-24 13:06] VITALS: BP 145/68; PULSE 76; RESP 16; TEMP 36.3; O2SAT 99; BMI 23.0
[2023-01-24] MEDS: DENOSUMAB 60 MG/ML SC (13:10)
== END | disposition home or self-care (01) ==
LOC: MEDOUTP 12:52
PROVIDERS: PCP Internal Medicine; Referring Provider Internal Medicine Endocrinology, Diabetes & Metabolism; Visit Provider Internal Medicine Endocrinology, Diabetes & Metabolism
DX: M81.0 Age-related osteoporosis without current pathological fracture (principal)
CPT/HCPCS: 96372; J0897

== ENCOUNTER 2023-05-19 15:39 | Emergency (ER) | payer MEDICARE, SELFPAY ==
[2023-05-19 15:40] VITALS: BP 144/107; PULSE 127; RESP 14; TEMP 36.7; O2SAT 100; BMI 23.6
--- NOTE | 2023-05-19 15:54 | EKG12_ITS ---
Test Reason : PALPATIONS Blood Pressure : / mmHG Vent. Rate : 124 BPM Atrial Rate : 124 BPM P-R Int : 148 ms QRS Dur : 060 ms QT Int : 270 ms P-R-T Axes : 105 012 -26 degrees QTc Int : 387 ms Sinus tachycardia Nonspecific ST and T wave abnormality Abnormal ECG No previous ECGs available Confirmed by RYAN FERGUSON, JUAN ([id number]), news assignment editor CORWIN MELENDEZ ([id number]) on 05/22/2023 1:42:12 PM Referred By: Confirmed By:JUAN DAVIS MD
--- NOTE | 2023-05-19 15:55 | EKG12_ITS ---
Test Reason : PALP Blood Pressure : / mmHG Vent. Rate : 122 BPM Atrial Rate : 244 BPM P-R Int : 000 ms QRS Dur : 066 ms QT Int : 306 ms P-R-T Axes : 235 005 -50 degrees QTc Int : 436 ms Atrial flutter with 2:1 A-V conduction Nonspecific ST and T wave abnormality Abnormal ECG Confirmed by RYAN FERGUSON, JUAN ([id number]), managing editor CORWIN MELENDEZ ([id number]) on 05/21/2023 9:32:27 AM Referred By: CELIA Confirmed By:JUAN DAVIS MD
[2023-05-19 16:03] VITALS: BP 160/108; PULSE 121; RESP 18; O2SAT 98
--- NOTE | 2023-05-19 16:08 | EX.ED.DYSGE1 ---
HPI History of Present Illness Chief Complaint: Palpitations Detail of Chief Complaint: Palpitations and fast heart rate Informant: patient Onset/Context/Timing Onset: Days (May 15 after bike ride) Context: Sudden Onset Timing: Intermittent Quality: May have been constant for longer than 24 hours. Current Severity: Mild Maximum Severity: Moderate Worsened by: Nothing Relieved by: Nothing Associated Symptoms Associated Symptoms: None Narrative Narrative: Patient is a 78-year-old woman who had a Holter monitor and dysrhythmia was noted. She was noted to have a flutter according the patient. Study was done at outside facility. She is presently on levothyroxine. She is followed by Dr. Philip Carnes. She is on a beta-katheryn. She is an avid bicycle rider. She denies weight gain or weight loss. She denies ocular, visual or auditory symptoms. She denies chest discomfort. Denies shortness of breath. Denies dyspnea on exertion. She denies orthopnea or PND. She denies black or maroon-colored stool. She denies orthostatic symptoms. She denies history of VTE. Denies leg pain, swelling discoloration. She denies any change in her medication. Patient states based on the Holter monitor there is concerned that she may have sleep apnea. Prior similar symptoms: Yes (Noted in HPI narrative) Recent Illness/Hospitalization: No [facility] Medical History (Updated 05/19/23 @ 19:[address] Cecilio Aguirre MD) Arthritis History of skin cancer History of thyroid cancer Osteoarthritis Osteopenia Osteoporosis PAF (paroxysmal atrial fibrillation) Home Medications calcium citrate 500 mg PO DAILY 01/04/20 [History Last Taken Unknown] cholecalciferol (vitamin D3) 50 mcg (2,000 unit) capsule 50 mcg PO .5X WEEK 01/04/20 [History Last Taken Unknown] metoprolol tartrate 25 mg tablet 12.5 mg PO DAILY 01/04/20 [History Last Taken Unknown] coenzyme Q10 100 mg capsule (Co Q-10) 100 mg PO DAILY 06/08/21 [History Last Taken Unknown] magnesium 250 mg tablet 500 mg PO DAILY 06/08/21 [History Last Taken Unknown] amitriptyline 10 mg tablet 10 mg PO .EVERY 4 DAYS 06/10/22 [History Last Taken Unknown] denosumab 60 mg/mL subcutaneous syringe 60 mg subcut [id number] #1 mL 06/20/22 [Rx Last Taken Unknown] levothyroxine 88 mcg tablet 88 mcg PO .qd, 1/2 on Sundays #90 tabs 01/10/23 [Rx Last Taken Unknown] apixaban 5 mg tablet (Eliquis) 5 mg PO BID #60 tabs 05/19/23 [Rx Last Taken Unknown] metoprolol tartrate 50 mg tablet 50 mg PO BID #60 tabs 05/19/23 [Rx Last Taken Unknown] riboflavin (vitamin B2) 400 mg tablet 400 mg PO DAILY 05/19/23 [History Last Taken Unknown] Allergy/AdvReac Type Severity Reaction Status Date / Time pseudoephedrine AdvReac Intermediate Other Verified 05/19/23 15:40 [From [facility]] Family History Mother Myocardial infarction, Onset Age: 77 Hypertension Osteoporosis CVA (cerebral vascular accident), Onset Age: 77 Father Hypertension Cancer Sister Hypertension Other High cholesterol Surgical History (Updated 05/19/23 @ 18:[address] Sammi Westfall MD) H/O thyroidectomy H/O total knee replacement S/P appendectomy Social History (Updated 05/19/23 @ 16:[address] Cecilio Aguirre MD) household members: spouse Smoking Status: Never smoker alcohol intake: never what type of physical activity do you participate in: walking and bicycling frequency: 1-2 times per week ROS ROS ED Constitutional Constitutional ED: Denies chills, fever(s), subjective, sweats or weight loss Eyes Eyes: Denies blurry vision, change in vision or diplopia ENT ENT ED: Denies ear pain, rhinorrhea or sore throat Cardiovascular Cardiovascular: Reports palpitations and racing heartbeat; Denies chest pain, orthopnea or paroxysmal nocturnal dyspnea Respiratory/Chest Respiratory/Chest: Denies cough, dyspnea, dyspnea on exertion, orthopnea or paroxysmal nocturnal dyspnea Gastrointestinal Gastrointestinal: Denies abdominal pain, constipation, melena, nausea or vomiting Genitourinary Genitourinary ED: Denies dysuria, hematuria or urinary frequency Musculoskeletal Musculoskeletal: Denies arthralgias or myalgias Integumentary Denies rash Neurologic Neurologic: Denies headache(s), paresthesias or weakness Endocrine Endocrinology: Denies cold intolerance or heat intolerance Hematologic/Lymphatic Hematologic/Lymphatic: Reports systems reviewed and no addt'l complaints, except as documented EXAM Physical Exam Const Vital Signs: 05/19/23 15:40 05/19/23 16:03 05/19/23 16:04 Temperature 98.1 F Temperature Source Temporal Pulse Rate 127 H 121 H Respiratory Rate 14 18 Respiratory Effort Normal Non-Labored Respiratory Pattern Normal Blood Pressure 144/107 H 160/108 H Blood Pressure Mean 119 125 Pulse Ox 100 98 Oxygen Delivery Method Room Air Room Air 05/19/23 16:54 05/19/23 18:22 Temperature Temperature Source Pulse Rate 116 H 117 H Respiratory Rate 17 13 Respiratory Effort Respiratory Pattern Blood Pressure 145/94 H 160/97 H Blood Pressure Mean 111 118 Pulse Ox 97 100 Oxygen Delivery Method Room Air Room Air Positive well nourished and well developed General Appearance ED: well developed and NAD; Negative for cyanotic, diaphoretic or pallor HEENT Reports moist mucous membranes HEENT Narrative: Head is normocephalic and atraumatic. Ears normal. Nares patent. Posterior pharynx is unremarkable. Eyes PERRL and EOMs intact bilaterally General Eye ED: Negative for pale conjunctiva or scleral icterus Neck no lymphadenopathy, supple and no JVD Neck Narrative: There is no carotid bruit. Chest Wall inspection of chest normal and palpation of chest normal Resp normal respiratory effort and clear to auscultation bilaterally Cardio regular rhythm, S1 normal heart sound, S2 normal heart sound and no murmurs Rate: tachycardic GI normal to inspection, nondistended, normoactive bowel sounds, non-tender, non-distended and no masses; Negative for hepatosplenomegaly Extremity normal to inspection Extremity Narrative: There is no asymmetry, swelling, discoloration, leg vein distention, palpable cords or tenderness along the distribution of the deep venous system. General Extremety ED: Negative for edema or tenderness General Extremity: Negative for edema Neuro No oriented x3, No CN's II-XII intact bilaterally and No no sensory deficits noted Sensorium / Orientation: Negative for alert Psych mental status grossly normal Skin no rashes or lesions noted, no wounds and skin turgor normal General Skin Exam: Negative for jaundice or pallor MDM MDM MDM Narrative Medical decision making narrative: Monitor reveals a fast narrow complex rhythm. Difficult to see P waves on the monitor. Will obtain twelve-lead EKG. Because she is on Synthroid will obtain TSH. Also obtain CBC without differential to assess H&H. BMP to assess electrolytes and specifically potassium. With prior history of a flutter this may represent atypical presentation flutter since she is on a beta-katheryn. She states her advertising material distributor is Dr. Nixon Abbott who practices out of [facility]. Lab Data Attestation: I reviewed the patient's lab results. Lab results narrative: CBC is unremarkable. TSH is low at 0.3. Troponin is normal. Labs: Laboratory Results - last 24 hr 05/19/23 15:57 WBC 5.8 RBC 4.85 Hgb 14.5 Hct 44.7 MCV 92.2 MCH 29.9 MCHC 32.4 RDW Std Deviation 43.3 RDW Coeff of Lucas 12.8 Plt Count 295 MPV 10.9 Sodium 136 Potassium 4.1 Chloride 105 Carbon Dioxide 27.0 Anion Gap 4 L BUN 25 H Creatinine 1.00 Estim Creat Clear Calc 33.86 Est GFR (MDRD) Af Amer 69 Est GFR (MDRD) Non-Af 57 L BUN/Creatinine Ratio 25.0 H Glucose 111 H Calcium 9.3 Troponin I High Sens 11 TSH 0.30 L EKG Initial EKG: Attestation: I personally reviewed and interpreted this EKG as follows: Interpretation: Atrial Flutter (Rate is 122. There is a 2-1 block. QRS duration 66 ms. QT durations 106 ms. Lindsay is normal.) Management Discussion w/another healthcare provider: [facility] (Valentin Thorne. Recommended metoprolol 50 mg twice daily, anticoagulant and office will call patient and the a.m. for follow-up appointment.) Discharge Plan Triage Chief Complaint: Palpitations ED Provider: Cecilio Aguirre Dx/Rx/DC Orders Clinical Impression: New onset atrial flutter, Low TSH level Instructions: ED Atrial Flutter Prescriptions: New metoprolol tartrate 50 mg tablet 50 mg PO BID Qty: 60 0RF Eliquis 5 mg tablet 5 mg PO BID Qty: 60 0RF No Action metoprolol tartrate 25 mg tablet 12.5 mg PO DAILY calcium citrate 250 mg calcium tablet 500 mg PO DAILY cholecalciferol (vitamin D3) 50 mcg (2,000 unit) capsule 50 mcg PO .5X WEEK magnesium 250 mg tablet 500 mg PO DAILY coenzyme Q10 [Co Q-10] 100 mg capsule 100 mg PO DAILY amitriptyline 10 mg tablet 10 mg PO .EVERY 4 DAYS riboflavin (vitamin B2) 400 mg tablet 400 mg PO DAILY Patient Comments: by mouth denosumab 60 mg/mL syringe 60 mg subcut [id number] Qty: 1 1RF levothyroxine 88 mcg tablet 88 mcg PO .qd, 1/2 on Sundays Qty: 90 3RF Primary Care Provider: Elise Martinez Referrals: Kevin Thorne MD [Med Staff - Active Staff] - As soon as possible Elise Martinez MD [Primary Care Provider] - Activity Restrictions/Additional Instructions: 1. Dr. Thorne's office will contact you in the morning for follow-up appointment 2. No bicycling till Dr. Thorne clears you Disposition Disposition: Home, Self Care
[2023-05-19] MEDS: Metoprolol Tartrate 5 MG/5 ML Vial IV ×2 (16:12→18:18)
[2023-05-19 16:18] LABS: Hematocrit 44.7 % (37-47); Hemoglobin 14.5 g/dL (12.0-15.0); Mean Corp Hgb Conc 32.4 g/dL (32-36); Mean Corpuscular Hgb 29.9 pg (27.0-32.0); Mean Corpuscular Volume 92.2 fL (81-99); Mean Platelet Vol. 10.9 fl (6.2-12.0); Platelet Count 295 K/mm3 (150-450); RBC Distribution Width CV 12.8 % (11.6-14.6); RBC Distribution Width SD 43.3 fl (35.1-43.9); Red Blood Count 4.85 M/mm3 (4.2-5.4); White Blood Count 5.8 K/mm3 (4.4-11.0)
[2023-05-19 16:41] LABS: Anion Gap 4 (5-15); BUN 25 mg/dL (7-18); Calcium,Total 9.3 mg/dL (8.5-10.1); Chloride 105 mmol/L (98-107); EST Glomerular Filtration Rate 57 mL/min (>60); Est Glom Filt Rate - Afr Amer 69 mL/min (>60); Estimated Creatinine Clearance 33.86 ml/min; Glucose 111 mg/dL (74-106); Potassium 4.1 mmol/L (3.5-5.1); Sodium Level 136 mmol/L (136-145); Troponin-I HS 11 pg/mL (3.0-54.0)
[2023-05-19 16:54] VITALS: BP 145/94; PULSE 116; RESP 17; O2SAT 97
[2023-05-19] MEDS: APIXABAN 5 MG TABLET PO (18:18)
[2023-05-19 18:22] VITALS: BP 160/97; PULSE 117; RESP 13; O2SAT 100
[2023-05-19 19:24] VITALS: BP 140/91
== END 2023-05-19 19:25 | disposition home or self-care (01) ==
PROVIDERS: Emergency Provider Emergency Medicine; PCP Internal Medicine; Visit Provider Emergency Medicine
DX: I48.92 Unspecified atrial flutter (principal); I48.0 Paroxysmal atrial fibrillation; Z79.890 Hormone replacement therapy; Z79.899 Other long term (current) drug therapy; R79.89 Other specified abnormal findings of blood chemistry
CPT/HCPCS: 80048; 84443; 84484; 85027; 93005; 96374; 96376; 99285; A4216

== ENCOUNTER 2023-07-25 12:52 | Outpatient (CLI) | payer MEDICARE, SELFPAY ==
[2023-07-25 13:16] VITALS: BP 128/72; PULSE 71; RESP 16; TEMP 36.8; O2SAT 98; BMI 22.8
[2023-07-25] MEDS: DENOSUMAB 60 MG/ML SC (13:22)
== END 2023-07-25 12:53 | disposition home or self-care (01) ==
LOC: MEDOUTP 12:52
PROVIDERS: PCP Internal Medicine; Referring Provider Internal Medicine Endocrinology, Diabetes & Metabolism; Visit Provider Internal Medicine Endocrinology, Diabetes & Metabolism
DX: M81.0 Age-related osteoporosis without current pathological fracture (principal)
CPT/HCPCS: 96372; J0897

== ENCOUNTER → 2023-09-24 | Outpatient (CLI) | payer MEDICARE, SELFPAY ==
--- NOTE | 2023-09-24 10:00 | BI_ITS ---
MAMMOGRAPHY - BILATERAL SCREENING REASON FOR EXAM: Female, 78 years old. Routine annual screening examination. PERTINENT HISTORY: Non-contributory. Prior left breast aspiration. Chronic right nipple inversion. TECHNIQUE: Digital bilateral breast donna (3D mammographic acquisition) in the CC and MLO projections. 2-D mediolateral oblique (MLO) and craniocaudad (CC) views of both breasts were obtained. CAD: Full Field Digital Mammography with Computer Added Detection was performed. COMPARISON: Comparison is made with prior study September 23, 2022 and September 14, 2021. FINDINGS: Breast Composition: The breasts are heterogeneously dense, which may obscure small masses. There are no dominant masses or suspicious calcifications. No other significant abnormalities are identified. There has been no significant change since the prior study. BI/SCRN MAMM (CAD)W/DONNA BILAT IMPRESSION: Stable bilateral screening mammogram. Yearly follow-up mammogram recommended. (A) ASSESSMENT CATEGORY: BIRADS Category 1: Negative. A letter regarding these results will be sent to the patient by the facility within 30 days. Approximately 10% of breast cancers are not detected by mammography. A normal mammogram should not delay biopsy of a clinically suspicious abnormality. [id number] Electronically Signed: Darryn Ibrahim MD at 9:48 EST ,
== END | disposition home or self-care (01) ==
LOC: OPBI 09:58
PROVIDERS: PCP Internal Medicine; Referring Provider Internal Medicine; Visit Provider Internal Medicine
DX: Z12.31 Encounter for screening mammogram for malignant neoplasm of breast (principal)
CPT/HCPCS: 77063; 77067

== ENCOUNTER → 2024-03-11 | Outpatient (CLI) | payer MEDICARE, SELFPAY ==
--- NOTE | 2024-03-11 10:22 | MRI_ITS ---
STUDY: MRI LUMBAR SPINE WITHOUT CONTRAST REASON FOR EXAM: Female, 79 years old. Spinal stenosis, spondylolisthesis and radiculopathy. TECHNIQUE: Standardized fat and water weighted pulse sequences were obtained in the sagittal and axial planes. COMPARISON: MRI lumbar spine without contrast 07/17/2022. FINDINGS: T9-T10 and T10-T11: (Sagittal only). Normal endplates. Normal disc height, hydration and morphology. No ventral extradural defect. Normal central canal and bilateral intervertebral neural foramina. T11-T12: Prominent anterior marginal spurs with moderate amount of reactive vertebral marrow edema underneath the adjacent anterior vertebral endplates. There is also moderate Modic type I marrow edema underneath the right the vertebral endplates. Pronounced disc space narrowing is a new finding. Right posterior paramedian ventral extradural defect is disc protrusion, previously posterior bulging annulus. Moderate right degenerative facet arthropathy. Normal left facet joint. Normal central canal and bilateral lateral recesses. Moderate stenosis of the right intervertebral neural foramen. Normal left intervertebral neural foramen.] The renal cyst is visible at this level. Thick-walled 1.5 cm round round lesion in the left upper lateral renal parenchyma is suspicious for solid mass with a small central cystic component. T12-L1: Normal endplates. Normal disc height, hydration and morphology. Normal bilateral facet joints. Normal central canal and bilateral lateral recesses. Normal bilateral intervertebral neural foramina. Small bilateral renal cortical cysts are visible at this level. Normal lumbar lordosis. There is no substantial scoliosis. Normal conus medullaris that terminates at the T12-L1 disc space level. L1-2: Normal endplates. Normal disc height, hydration and morphology. Normal bilateral facet joints. Normal central canal and bilateral lateral recesses. Normal bilateral intervertebral neural foramina. L2-3: Normal endplates. Normal disc height, hydration and morphology. Normal bilateral facet joints. Normal central canal and bilateral lateral recesses. Normal bilateral intervertebral neural foramina. L3-4: Mixed Modic type II and type III degenerative changes of the vertebral marrow underneath the vertebral endplates. Moderately pronounced disc space height narrowing. Grade 1 asymmetric degenerative anterolisthesis of L3 on L4. Pronounced bilateral degenerative facet arthropathy, prominent posterior ligamenta flava hypertrophy and the prominent bilateral medial synovial hypertrophy. Pronounced central canal stenosis with an AP canal diameter of 4.5 mm. This is causing moderate stenosis of the bilateral lateral recesses. Mild stenosis of the bilateral intervertebral neural foramina. L4-5: Mixed Modic type I, type II and type III degenerative changes of the vertebral marrow underneath the vertebral endplates. Pronounced disc space height narrowing. Nearly grade 2 degenerative anterolisthesis of L4 on L5. Moderate bilateral degenerative facet arthropathy. Moderate central canal stenosis with an AP canal diameter of 7.5 mm. Moderately pronounced asymmetric stenosis of the bilateral intervertebral neural foramina, right greater than left with mild impingement of the right L4 nerve. L5-S1: Normal endplates. Complete collapse of the disc space height. Grade 1 anterolisthesis of L5 on S1. This may be due to bilateral L5 pars defects. Mild bilateral degenerative facet arthropathy. Normal central canal and bilateral lateral recesses. Moderate stenosis of the bilateral intervertebral neural foramina are unchanged.. Normal visualized sacral ala. Normal visualized paraspinous soft tissue structures. MRI/Spine Lumbar (Routine) IMPRESSION: 1. Pronounced central canal stenosis at L3-L4 disc space level with an AP canal diameter of 4.5 mm secondary to pronounced bilateral degenerative facet arthropathy, prominent posterior ligamentum flavum hypertrophy and prominent bilateral medial synovial hypertrophy. Additionally, moderate pronounced disc space height narrowing and moderate stenosis of the bilateral lateral recesses. 2. Grade 1 anterolisthesis of L5 on S1 suspiciously secondary to bilateral L5 pars defects and moderate stenosis of the bilateral intervertebral neural foramina. This level is unchanged. 3. Moderate central canal stenosis at L4-L5 disc space level with an AP canal diameter 7.5 mm, moderately pronounced asymmetric stenosis of the bilateral intervertebral neural foramina, right greater than left with mild impingement of the right L4 nerve and nearly grade 2 degenerative anterolisthesis of L4 on L5. These have all worsened when compared to 07/17/2022. 4. Moderate right-sided T11-12 intervertebral osteochondritis (Modic type I), pronounced disc space height narrowing, right posterior paramedian disc protrusion and moderate stenosis of the right intervertebral neural foramen are new findings. 5. 1.5 cm thick walled round mass in the left lateral upper renal parenchyma is suspicious for solid mass with small central cystic component. Recommend CT of the kidneys with and without contrast for further evaluation. Electronically Signed: Jose Copeland MD at 12:23 EDT ,
== END | disposition home or self-care (01) ==
LOC: MRI 10:07
PROVIDERS: PCP Internal Medicine; Referring Provider Orthopaedic Surgery; Visit Provider Orthopaedic Surgery
DX: M48.061 Spinal stenosis, lumbar region without neurogenic claudication (principal); M43.16 Spondylolisthesis, lumbar region; M54.16 Radiculopathy, lumbar region
CPT/HCPCS: 72148

== ENCOUNTER → 2025-01-18 | Outpatient (CLI) | payer MEDICARE, SELFPAY ==
--- NOTE | 2025-01-18 06:55 | ECHOD_ITS ---
Reason For Study Reason For Study: PAROXYSMAL ATRIAL FIBRILLATION Left Ventricle Normal LV size. The left ventricular ejection fraction is 45 %. Left ventricular systolic function is lower limits of normal. No regional wall motion abnormalities noted. Right Ventricle Normal RV size. Normal systolic function. Atria Normal left atrium. Normal right atrium. Mitral Valve Normal mitral valve. Mild (1+) eccentric mitral valve insufficiency. Tricuspid Valve Normal tricuspid valve. Mild tricuspid valve insufficiency. Pulmonary artery systolic pressure is 30 mmHg. Aortic Valve Trisinus/trileaflet aortic valve. Pulmonic Valve Normal pulmonic valve. Great Vessels Normal aortic root. The pulmonary artery is normal size. Inferior vena cava collapse with respiration. Pericardium/Pleural No pericardial effusion. MMode/2D Measurements & Calculations LVIDd: 3.6 cm IVSd: 0.81 cm Ao root diam: 3.1 cm LVIDs: 2.2 cm LVPWd: 0.83 cm FS: 38.8 % LAV(MOD-bp): 74.5 ml LVAd ap4: 14.6 cm2 LVAd ap2: 9.7 cm2 LAV(MOD-bp) Indexed: 48.4 ml/m2 LVLd ap4: 5.6 cm LVLd ap2: 4.9 cm LAV(MOD-sp2): 71.1 ml EDV(MOD-sp4): 32.4 ml EDV(MOD-sp2): 16.7 ml LAV(MOD-sp4): 71.0 ml EDV(sp4-el): 32.3 ml EDV(sp2-el): 16.4 ml LVAs ap4: 10.6 cm2 LVAs ap2: 6.6 cm2 LVLs ap4: 5.2 cm LVLs ap2: 4.2 cm ESV(MOD-sp4): 19.1 ml ESV(MOD-sp2): 9.5 ml ESV(sp4-el): 18.2 ml ESV(sp2-el): 8.9 ml EF(MOD-sp4): 41.2 % EF(MOD-sp2): 43.3 % EF(sp4-el): 43.6 % SV(MOD-sp4): 13.4 ml SV(MOD-sp2): 7.2 ml SV(sp4-el): 14.1 ml SI(MOD-sp4): 8.7 ml/m2 SI(MOD-sp2): 4.7 ml/m2 LA A4 area: 22.3 cm2 LA dimension(2D): 3.9 cm RA A4 area: 19.3 cm2 TAPSE: 3.0 cm Doppler Measurements & Calculations MV E max toni: 87.0 cm/sec Lat Peak E' Toni: 14.1 cm/sec Med Peak E' Toni: 11.9 cm/sec E/E' lat: 6.2 E/E' med: 7.3 Ao V2 max: 82.9 cm/sec LV V1 max: 57.9 cm/sec PA V2 max: 82.1 cm/sec Ao max P.7 mmHg LV V1 max P.3 mmHg Ao V2 mean: 64.1 cm/sec LV V1 mean P.75 mmHg Ao mean P.7 mmHg LV V1 mean: 41.4 cm/sec Ao V2 VTI: 14.2 cm LV V1 VTI: 10.7 cm AV (velocity ratio): 0.75 PI dec slope: 280.9 cm/sec2 TR max toni: 257.9 cm/sec TR max P.6 mmHg ECHO/Echo Complete Interpretation Summary Normal LV size. The left ventricular ejection fraction is 45 %. Left ventricular systolic function is lower limits of normal. Mild (1+) eccentric mitral valve insufficiency. Structurally normal valves. Ordering Physician: Linwood Nolasco Referring Physician: Elise Shaikh Performed By: Emily Elizabeth, [place], RVT
== END | disposition home or self-care (01) ==
PROVIDERS: PCP Internal Medicine; Referring Provider Nurse Practitioner Family; Visit Provider Nurse Practitioner Family
DX: I48.0 Paroxysmal atrial fibrillation (principal)
CPT/HCPCS: 93225; 93226; 93306

== ENCOUNTER 2025-02-28 10:24 | Day surgery (SDC) | payer MEDICARE, SELFPAY ==
[2025-02-22 08:18] LABS: Anion Gap 9 (5-15); BUN 18 mg/dL (4-19); BUN/Creat Ratio 20.1 RATIO (10-20); Calcium,Total 9.3 mg/dL (7.6-11.0); Carbon Dioxide 26.3 mmol/L (21.0-32.0); Chloride 104 mmol/L (98-108); Creatinine, Serum 0.89 mg/dL (0.70-1.20); EST Glomerular Filtration Rate 65 (>60); Glucose 90 mg/dL (70-99); Potassium 4.5 mmol/L (3.3-5.1); Sodium Level 139 mmol/L (133-145)
--- NOTE | 2025-02-23 11:09 | HP.PCM_ITS ---
History and Physical Date of Admission: 02/28/25 80-year-old lady with previous cardiac history of palpitations who is being referred to us for evaluation of her palpitations. She is very active lady with a remote history of papillary thyroid carcinoma. She says that she was on a bike ride and afterwards started noticing that her heart was racing. She had previously been seen over a year ago with supraventricular tachycardia when she noted palpitations. She had been put on metoprolol which she was taking as needed. As I noted she has been an avid cyclist and on this particular day after cycling she presented to the emergency room and was noted to be in an atrial flutter rhythm with a rate of 122 bpm with a 2-1 conduction. A previous echocardiogram from 2019 demonstrated an ejection fraction of 65% normal right- sided pressures. As part of her work-up for her palpitations she had had a 14- day Zio patch monitor placed and she did have an average heart rate of 65 bpm with a minimum heart rate of 31 bpm and variable atrial tachycardia as well as pauses noted to the longest being 4.2 seconds. This was apparently asymptomatic during sleep. She did see the single pointed operator and was offered medical therapy or ablation. Concerns regarding continual palpitations and underwent a Holter monitor in December 2024 that showed an average heart rate of 86 bpm and atrial fibrillation 100% of scan. She had an echocardiogram on 01/18/2025 that showed LV function 45% and normal left and right atrium size. She continues with palpitations that she describes as fast and irregular. She denies chest, arm, jaw, or neck discomfort. She denies bilateral lower extremity edema. She denies shortness of breath with activity, shortness of breath at rest, orthopnea, cough, or PND. She denies lightheadedness, dizziness, near-syncope, or syncope. Twelve-lead ECG on 12/29/2024 shows atrial fibrillation 107 bpm. Intake Vital Signs: See EMR Intake Visit Reasons: DCCV Grid Inspector Required: No Is patient in pain?: No Allergies pseudoephedrine (From Sudafed) Adverse Reaction (Intermediate, Verified 12/29/24 13:04) Other Medications: See EMR Ejection fraction %: 45 Have you fallen in the past year?: No [facility] Medical History (Updated 12/29/24 @ 13:41 by Linwood Nolasco SIGNAL INSPECTOR, SIGNAL INSPECTOR-C) Palpitations Age-related osteoporosis without current pathological fracture Lumbar adjacent segment disease with spondylolisthesis IFG (impaired fasting glucose) Vitamin D deficiency Papillary carcinoma of thyroid Rheumatic fever Abnormal heart sounds RLS (restless legs syndrome) DDD (degenerative disc disease) PAF (paroxysmal atrial fibrillation) History of skin cancer History of thyroid cancer Osteoporosis Osteopenia Arthritis Osteoarthritis Surgical History Hx of tonsillectomy Hx of dilation and curettage Hx of adenoidectomy S/P appendectomy H/O total knee replacement H/O thyroidectomy Family History Mother Myocardial infarction, Onset Age: 77 Hypertension Osteoporosis CVA (cerebral vascular accident), Onset Age: 77Father Hypertension Cancer COPD (chronic obstructive pulmonary disease) Macular degeneration Atrial fibrillationSister Hypertension Atrial fibrillationOther High cholesterol Social History household members: spouse Smoking Status: Never smoker alcohol intake: never substance use type: does not use caffeine: Yes what type of physical activity do you participate in: walking and bicycling frequency: 1-2 times per week ROS Const Const: Negative for fatigue or weakness Eyes Eyes: Negative for change in vision ENT ENT: Negative for dizziness or balance problems Cardio Chest Pain: No Palpitations: Yes feels like its: fast and irregular Edema: None Muscle aches with walking: None Resp Respiratory: Negative for SOB with activity, SOB at rest or SOB orthopnea\SOB lying down GI GI: Negative nausea or heartburn : Negative for hematuria or frequent nighttime urination/ nocturia Musc Musc: Negative for balance problems Skin Skin: Negative non-healing lesions or rash Neuro Neuro: Negative for dizziness, lightheadedness, near syncope, syncope or weakness Endo Endo: Negative for fatigue Allergy Allergy/Immunology: Negative for rash Cardiology Exam Const Appearance: cooperative, healthy appearing, comfortable and no acute distress Nutritional Appearance: average body habitus and well nourished Orientation: alert, awake and oriented x3 Head Head: normal to inspection Ears: hearing grossly normal bilaterally Nose: external nose normal Face and Sinus: face symmetric Mouth: moist mucous membranes Eyes General: appearance normal, both eyes and all related structures Eyelids: eyelids normal EOM: EOM intact bilaterally Neck Neck: normal visual inspection and no JVD Carotids: normal carotid upstroke Chest Chest inspection: normal inspection of the chest, symmetric chest movement and normal respiratory effort; Negative cough Auscultation: Bilateral: Clear to Auscultation Cardio Rhythm: irregular rhythm Heart sounds: S1 normal and S2 normal; Negative rub, gallop or murmur GI GI: normal to inspection Neuro General: patient alert, patient awake, patient oriented x3 and CN's II-XI intact bilaterally Skin Skin: no rashes or lesions noted Extremities Pulses: Normal: Right Posterior Tibial Pulse, Left Posterior Tibial Pulse, Right Radial Pulse and Left Radial Pulse Lower Extremity Edema: None: Bilateral Psych Psychological: normal affect Supplemental Info Supplemental Information Echocardiogram from 01/18/2025: Interpretation Summary Normal LV size. The left ventricular ejection fraction is 45 %. Left ventricular systolic function is lower limits of normal. Mild (1+) eccentric mitral valve insufficiency. Structurally normal valves. Echocardiogram 07/30/23 ([facility]) Conclusions The left ventricle is normal in size. There is no left ventricular hypertrophy. Left ventricular systolic function is normal. EF=64+ 5%. Indeterminate left ventricular diastolic dysfunction due to inconsistent or technically suboptimal data. The right ventricle is normal in size. Right ventricular systolic function is normal. The left atrial cavity is mildly dilated. No significant valve disease. STRESS TEST 06/22/19 ([facility]): IMPRESSION 1. Normal ECG response to symptom limited exercise. 2. Development of possible SVT at peak of exercise, which may be a form of atrial tachycardia. 3. [place] treadmill scores suggesting low risk scan. 14 DAY EVENT MONITOR 03/18/23-03/31/23: Patient had a min HR of 31 bpm, max HR of 214 bpm, and avg HR of 65 bpm. Predominant underlying rhythm was Sinus Rhythm. 307 Supraventricular Tachycardia runs occurred, the run with the fastest interval lasting 18 beats with a max rate of 214 bpm, the longest lasting 2 mins 22 secs with an avg rate of 124 bpm. Some episodes of Supraventricular Tachycardia may be possible Atrial Tachycardia with variable block. 4 Pauses occurred, the longest lasting 4.2 secs (14 bpm). Supraventricular Tachycardia was detected within +/- 45 seconds of symptomatic patient event(s). Isolated SVEs were frequent (10.0%, [id number]), SVE Couplets were occasional (1.2%, [id number]), and SVE Triplets were rare (<1.0%, 2509). Isolated VEs were rare (<1.0%), and no VE Couplets or VE Triplets were present. Assessment and Plan Assessment and Plan (1) PAF (paroxysmal atrial fibrillation): Status: Acute Plan: [id number] score: 3 (age +2, gender) (3.2% stroke risk) Atrial fibrillation stage: 3A, paroxysmal 12 Lead EC12/29/2024-atrial fibrillation 107 bpm Echocardiogram: 01/18/2025?EF: 45%, normal left and right atrium; 07/30/2023-EF: 64?5%, mildly enlarged left atrium Heart Rate Control: Metoprolol tartrate 50 mg p.o. twice daily Anticoagulation/CVA Protection: Eliquis 5 mg p.o. twice daily Her metoprolol has been advanced for heart rate control. Her most recent Holter monitor showed average heart rate 86 bpm with atrial fibrillation. As she is noted to be in atrial fibrillation and LV function is reduced compared to previous in July 2023, she will proceed with cardioversion. Depending on results, further recommendation be made. She will continue Eliquis for CVA protection with 5 mg p.o. twice daily.
[2025-02-25 07:27] VITALS: BMI 22.6
--- NOTE | 2025-02-28 12:16 | PCM.OP.PRO2 ---
Non-invasive Procedural Procedure Information Date of Procedure: 02/28/25 Pre-Procedure Diagnosis: Atrial fibrillation Post-Procedure Diagnosis: Same Procedure Performed:: DC cardioversion java development team lead: No Procedure Time Out: 12:00 Procedure Start Time: 12:11 Procedure Stop Time: 12:15 Special Medications: Intravenous propofol 40 mg Description of procedure: The patient was brought to the cardiac catheterization lab in the postabsorptive nonsedated state. Informed consent was obtained. Anterior-posterior pads were applied. The patient was seen by Dr. Long of the critical care division. The patient was administered 40 mg of intravenous propofol and 200 J of synchronized DC biphasic energy were applied with prompt reversal to sinus rhythm. Patient tolerated the procedure well. Will continue with routine post procedure regimen. Procedure findings: Successful DC cardioversion from atrial fibrillation to sinus rhythm Continue anticoagulation Reduce metoprolol to 25 mg twice a day Complications Complications: No
--- NOTE | 2025-02-28 12:38 | PCM.OP.PRO2 ---
Procedures Pulmonary Pulmonary Procedures /Diagnostic Testin Con Sedation Non-invasive Procedural Procedure Information Date of Procedure: 02/28/25 Description of procedure: CONSCIOUS SEDATION REPORT DATE OF SERVICE: February 28, 2025 BRIEF HISTORY OF PRESENT ILLNESS: The patient is an 80-year-old female who presented to [facility] for an elective outpatient cardioversion due to underlying atrial fibrillation. The patient has never previously undergone a cardioversion. She denied any prior anesthetic complications. Her last surface echocardiogram demonstrated an ejection fraction of approximately 45%. She is systemically anticoagulated on Eliquis. PHYSICAL EXAMINATION: VITAL SIGNS: Reviewed and were acceptable. GENERAL: The patient is a female, in no apparent distress, speaking in full sentences. HEENT: Normocephalic, atraumatic. Mucous membranes are moist and pink. Good mouth opening noted. MPI CHEST: S1, S2 irregularly irregular. No murmurs, rubs or gallops were noted. LUNGS: Clear to auscultation bilaterally without appreciable wheezes, rales or rhonchi. ABDOMEN: Soft, nontender, nondistended. Positive bowel sounds. EXTREMITIES: There is no clubbing, cyanosis or edema. ASA Class: II DESCRIPTION OF PROCEDURE: After confirmation of informed consent, the patient's anesthesia plan was reviewed in detail. Propofol was chosen. Risks and benefits were reviewed and the patient agreed to proceed. At 1211, the patient was given 40 mg of propofol. The patient achieved an appropriate level of sedation and was given a 200 joule synchronized cardioversion by Dr. Thorne at the bedside. This was successful in achieving normal sinus rhythm. The patient was monitored until 1225, at which time she reached her baseline mental status and function. The patient tolerated the procedure well. COMPLICATIONS: None ESTIMATED BLOOD LOSS: None RECOMMENDATIONS: Okay to recover in usual fashion.
== END 2025-02-28 13:15 | disposition home or self-care (01) ==
PROVIDERS: Nurse Practitioner Family; PCP Internal Medicine; Referring Provider Internal Medicine Cardiovascular Disease; Visit Provider Internal Medicine Cardiovascular Disease
DX: I48.0 Paroxysmal atrial fibrillation (principal); E55.9 Vitamin D deficiency, unspecified; M81.0 Age-related osteoporosis without current pathological fracture; G25.81 Restless legs syndrome; Z79.01 Long term (current) use of anticoagulants; Z82.49 Family history of ischemic heart disease and other diseases of the circulatory system; Z90.89 Acquired absence of other organs; Z85.850 Personal history of malignant neoplasm of thyroid; Z79.899 Other long term (current) drug therapy; Z79.890 Hormone replacement therapy
CPT/HCPCS: 36415; 80048; 92960; 93005

== ENCOUNTER → 2025-04-15 | Outpatient (CLI) | payer MEDICARE, SELFPAY ==
--- NOTE | 2025-04-15 09:57 | ECHOD_ITS ---
Reason For Study Reason For Study: AFIB/FLUTTER Procedure This was a 2D Doppler, Color Flow transthoracic echocardiogram. Exam performed in department. Left Ventricle Normal LV size. The left ventricular ejection fraction is 65 %. No regional wall motion abnormalities noted. Right Ventricle Normal RV size. Normal systolic function. Atria Normal left atrium. Normal right atrium. Mitral Valve Normal mitral valve. Trivial eccentric mitral valve insufficiency. Tricuspid Valve Normal tricuspid valve. Mild (1+) tricuspid valve insufficiency. Pulmonary artery systolic pressure is 32 mmHg. Aortic Valve Trisinus/trileaflet aortic valve. Pulmonic Valve Normal pulmonic valve. Great Vessels Normal aortic root. The pulmonary artery is normal size. Inferior vena cava collapse with respiration. Pericardium/Pleural No pericardial effusion. MMode/2D Measurements & Calculations LVIDd: 4.6 cm IVSd: 0.71 cm Ao root diam: 3.1 cm LVIDs: 3.0 cm LVPWd: 0.86 cm RVDd: 2.8 cm FS: 34.5 % LAV(MOD-bp): 62.9 ml LVAd ap4: 22.3 cm2 LVAd ap2: 21.8 cm2 LAV(MOD-bp) Indexed: 40.9 ml/m2 LVLd ap4: 6.3 cm LVLd ap2: 7.1 cm LAV(MOD-sp2): 61.6 ml EDV(MOD-sp4): 65.7 ml EDV(MOD-sp2): 56.6 ml LAV(MOD-sp4): 53.7 ml EDV(sp4-el): 67.3 ml EDV(sp2-el): 57.1 ml LVAs ap4: 11.8 cm2 LVAs ap2: 10.6 cm2 LVLs ap4: 5.1 cm LVLs ap2: 5.1 cm ESV(MOD-sp4): 23.3 ml ESV(MOD-sp2): 19.4 ml ESV(sp4-el): 23.0 ml ESV(sp2-el): 18.5 ml EF(MOD-sp4): 64.5 % EF(MOD-sp2): 65.6 % EF(sp4-el): 65.8 % SV(MOD-sp4): 42.4 ml SV(MOD-sp2): 37.1 ml SV(sp4-el): 44.3 ml SI(MOD-sp4): 27.5 ml/m2 SI(MOD-sp2): 24.1 ml/m2 LA A4 area: 19.2 cm2 LA dimension(2D): 3.8 cm RA A4 area: 16.4 cm2 TAPSE: 2.3 cm Time Measurements MV dec time: 0.15 sec Doppler Measurements & Calculations MV E max toni: 73.7 cm/sec Lat Peak E' Toni: 10.1 cm/sec Med Peak E' Toni: 9.0 cm/sec MV A max toni: 36.1 cm/sec E/E' lat: 7.3 E/E' med: 8.2 MV E/A: 2.0 MV V2 max: 92.1 cm/sec MV P1/2t max toni: 92.1 cm/sec Ao V2 max: 106.4 cm/sec MV max P.4 mmHg MV P1/2t: 50.1 msec Ao max P.5 mmHg MV V2 mean: 35.4 cm/sec Ao V2 mean: 73.1 cm/sec MV mean P.69 mmHg MV dec slope: 538.8 cm/sec2 Ao mean P.4 mmHg MV V2 VTI: 29.8 cm MVA(P1/2t): 4.4 cm2 Ao V2 VTI: 26.2 cm AV (velocity ratio): 0.72 LV V1 max: 75.7 cm/sec PA V2 max: 104.8 cm/sec LV V1 max P.3 mmHg PA V2 mean: 72.4 cm/sec PI dec slope: 97.3 cm/sec2 LV V1 mean P.3 mmHg PA V2 VTI: 25.1 cm LV V1 mean: 54.7 cm/sec LV V1 VTI: 18.7 cm TR max toni: 265.8 cm/sec TR max P.3 mmHg ECHO/Echo Complete Interpretation Summary Normal LV size. The left ventricular ejection fraction is 65 %. Structurally normal valves. The global longitudinal strain is normal. The globa l longitudinal strain = -21 % (normal). Ordering Physician: Kevin Thorne Referring Physician: Elise Martinez Performed By: Emily Elizabeht, [place], RVT
== END | disposition home or self-care (01) ==
PROVIDERS: PCP Internal Medicine; Referring Provider Internal Medicine Cardiovascular Disease; Visit Provider Internal Medicine Cardiovascular Disease
DX: I48.0 Paroxysmal atrial fibrillation (principal)
CPT/HCPCS: 93306